=== PATIENT | female | born 1985 | race Asian ===

== ENCOUNTER 2016-08-17 11:11 | Outpatient (CLI) | payer SELFPAY ==
[~2016-08-17] VITALS: Ht 162.6 cm; Wt 62.5 kg
[2016-08-17 11:20] VITALS: Ht 162.6 cm; Wt 62.5 kg
[2016-08-17 11:21] VITALS: BP 118/72
[2016-08-17] MEDS ORDERED: CALC300T4 PO (11:25)
[2016-08-17] MEDS ORDERED: PREN1TAB17 PO (11:25)
[2016-08-17 12:21] LABS: ADD SCAN DIFF NO
[2016-08-17 12:25] LABS: BASOPHILS % 0.3 % (0.0-2.0); EOSINOPHILS # 0.1 10^3/ul (0.0-0.5); HEMATOCRIT 34.7 % (37.0-47.0); HEMOGLOBIN 11.8 g/dl (12.0-16.0); LYMPHOCYTES # 2.2 10^3/ul (0.8-2.9); LYMPHOCYTES % 16.5 % (15.0-51.0); MEAN CORPUSCULAR HEMOGLOBIN 32.1 pg (29.0-33.0); MEAN CORPUSCULAR VOLUME 94.3 fl (82.0-101.0); MEAN PLATELET VOLUME 9.6 fl (7.4-10.4); MONOCYTES % 7.2 % (0.0-11.0); NEUTROPHIL # 9.7 10^3/ul (1.6-7.5); NEUTROPHILS % 73.3 % (39.0-77.0); PLATELET COUNT 266 10^3/UL (140-415); RED BLOOD COUNT 3.68 10^6/ul (4.20-5.40); RED CELL DISTRIBUTION WIDTH 12.8 % (11.5-14.5); WHITE BLOOD COUNT 13.3 10^3/ul (4.8-10.8)
[2016-08-17 13:46] LABS: ADD UMIC NO; URINE BILIRUBIN (Dip) NEGATIVE (NEGATIVE); URINE BLOOD (Dip) NEGATIVE (NEGATIVE); URINE COLOR LT. YELLOW (YELLOW); URINE GLUCOSE (Dip) NEGATIVE (NEGATIVE); URINE KETONES (Dip) NEGATIVE (NEGATIVE); URINE LEUKOCYTE ESTERASE (Dip) NEGATIVE (NEGATIVE); URINE NITRITE (Dip) NEGATIVE (NEGATIVE); URINE TOTAL PROTEIN (Dip) NEGATIVE (NEGATIVE); URINE UROBILINOGEN (Dip) 0.2 E.U./dL (0.1-1.0)
--- NOTE | 2016-08-17 14:35 | RADRPT ---
PROCEDURE: US OB biophysical profile. Ultrasound cervix CLINICAL INDICATION: decreased movements, pain TECHNIQUE: Multiple sonographic images of the pelvis were obtained. In addition, transvaginal imag es of the cervix were obtained. The images were reviewed on a PACS workstation. COMPARISON: No prior studies are available for comparison. FINDINGS: The cervix is closed and measures 3.5 cm in length. There is a single viable intrauterine gestation. Cardiac activity is present with 115 beats per min shabbir. There is a vertex presentation. The placenta is anterior. There is no evidence of placental abruption. There is a normal amount of amniotic fluid with an TORSTEN = 10.7 cm. Biophysical profile: movement 2/2 tone 2/2. breathing 2/2 TORSTEN 2/2 Total 11/02 RPTAT: AA . IMPRESSION: Normal biophysical profile. . .Billy Asencio MD, Date Time Electronically viewed and signed by .Billy Asencio MD, on 08/17/2016 14:34 .S/
--- NOTE | 2016-08-17 16:19 | TRIAGE ---
OB Triage Datetime Report Generated by CPN: 08/17/2016 16:19 Datetime: 08/17/2016 15:50 Stage of : OB Triage Labor Evaluation Frequency: 0 Monitor Mode: External Pattern: Normal: <= 5 Contractions in 10 Minutes Resting Tone Truman: Relaxed Heart Rate FHR Baseline Rate: 125 Monitor Mode: External US Variability: Moderate 6-25 bpm Accelerations: 15X15 Decelerations: None Category: Category I Pain Presence: None/Denies Pain Type: N/A Vaginal Exam Membrane Status: Intact Datetime: 08/17/2016 14:10 Stage of : OB Triage Labor Evaluation Frequency: 0 Monitor Mode: External Pattern: Normal: <= 5 Contractions in 10 Minutes Resting Tone Truman: Relaxed Heart Rate FHR Baseline Rate: 125 Monitor Mode: External US Variability: Moderate 6-25 bpm Accelerations: 15X15 Decelerations: None Category: Category I Pain Presence: None/Denies Pain Type: N/A Vaginal Exam Membrane Status: Intact Datetime: 08/17/2016 13:56 Stage of : OB Triage Labor Evaluation Frequency: 0 Monitor Mode: External Resting Tone Truman: Relaxed Heart Rate FHR Baseline Rate: 120 Monitor Mode: External US Variability: Moderate 6-25 bpm Accelerations: 15X15 Decelerations: None Category: Category I Pain Presence: None/Denies Pain Type: N/A Datetime: 08/17/2016 13:14 Stage of : OB Triage Labor Evaluation Frequency: 0 Monitor Mode: External Pattern: Normal: <= 5 Contractions in 10 Minutes Resting Tone Truman: Relaxed Heart Rate FHR Baseline Rate: 120 Monitor Mode: External US Variability: Moderate 6-25 bpm Accelerations: 15X15 Decelerations: None Category: Category I Pain Presence: None/Denies Pain Type: N/A Vaginal Exam Membrane Status: Intact Datetime: 08/17/2016 12:59 Stage of : OB Triage Labor Evaluation Frequency: 0 Monitor Mode: External Pattern: Normal: <= 5 Contractions in 10 Minutes Heart Rate FHR Baseline Rate: 125 Monitor Mode: External US Variability: Moderate 6-25 bpm Accelerations: 15X15 Decelerations: None Category: Category I Pain Presence: None/Denies Pain Type: N/A Vaginal Exam Membrane Status: Intact Datetime: 08/17/2016 12:17 Stage of : OB Triage Labor Evaluation Frequency: 0 Monitor Mode: External Pattern: Normal: <= 5 Contractions in 10 Minutes Heart Rate FHR Baseline Rate: 120 Monitor Mode: External US Variability: Moderate 6-25 bpm Accelerations: 15X15 Decelerations: None Category: Category I Pain Presence: None/Denies Pain Type: N/A Vaginal Exam Membrane Status: Intact Datetime: 08/17/2016 11:39 EGA: 30.5 Datetime: 08/17/2016 11:27 Stage of : OB Triage Assessment Type: Triage Maternal Assessment Level of Consciousness: Fully Conscious DTR's/Clonus: DTRs 2+; No Clonus Headache: Denies Blurred Vision: No Respiratory Effort: Unlabored; Regular Rhythm; Equal Expansion Breath Sounds, Left: Clear and Equal Breath Sounds, Right: Clear and Equal Nausea/Vomiting: Denies RUQ Epigastric Pain: Denies Lower Extremities Edema: None Degree: None Upper Extremities Edema: None Degree: None Facial Edema: None Temperature Route: Oral Fall Risk Assessment History of Falling: (0) No Secondary Diagnosis: (0) No Ambulatory Aid: (0) Bedrest/Nurse Assist IV Therapy: (0) No Gait: (0) Normal/Bedrest/Immobile Mental Status: (0) Oriented to Own Ability Fall Score: 0 Fall Risk Score Definition: No Risk: No action required Labor Evaluation Frequency: 0 Monitor Mode: External Heart Rate FHR Baseline Rate: 125 Monitor Mode: External US Variability: Moderate 6-25 bpm Accelerations: 15X15 Decelerations: None Category: Category I Pain Assessment Pain Scale: 0 Pain Presence: None/Denies Pain Type: N/A Datetime: 08/17/2016 11:26 Time of Arrival: 08/17/2016 11:05 Arrived By: Ambulatory Arrived From: Home Chief Complaint: HERE FOR CHECK NO MD FROM [place] Movement: Present Contractions: Denies/Absent Rupture of Membranes: Denies Vaginal Bleeding: None Vaginal Discharge: Denies Recent Sexual Intercouse: Denies Abdominal Trauma: Not Applicable Patient Complaints: None Provider Notified: KIEL Initial Plan: [id number]. CALL
--- NOTE | 2016-08-17 16:25 | CONS ---
Date/Time of Note Date/Time of Note DATE: 08/17/16 TIME: 16:14 Consultation Date/Type/Reason Admit Date/Time August 17, 2016 Triage consult Reason for Consultation This patient is a 31 years old 1 para 0 with estimated date of confinement of October 21, 2016 which makes her 29 weeks and 3 days she was under care of [facility] just moved to [place] and no care planing of constipation and the slight abdominal pain in reviewing her history no also complaining of GERD and taking Tums as well as her pills. Her vital signs appears to be normal, blood pressure 118/22, pulse rate 97, respirations 16, temperature 98.7,. On examination she is a well-developed well-nourished oriental lady ear nose throat appear to be normal chest clear abdomen is soft very rare contract fetus appears to be in the vertex position On laboratory study her urine test is normal. No proteinuria. Nitrate is negative. Her CBC showed mild anemia hemoglobin 11.8 hematocrit hematocrit 34.7 Ultrasound study; there is a single fetus in vertex presentation. Cervical length is 3.5 cm. Single viable intrauterine gestation. Heart rate of 115 bpm. In vertex presentation. Placenta is anterior no evidence of abruptio or placenta previa . TORSTEN was reported 10.7 cm. Laboratory Tests Test 08/17/16 11:05 White Blood Count 13.310^3/ul Red Blood Count 3.6810^6/ul Hemoglobin 11.8g/dl Hematocrit 34.7% Mean Corpuscular Volume 94.3fl Mean Corpuscular Hemoglobin 32.1pg Mean Corpuscular Hemoglobin Concent 34.0g/dl Red Cell Distribution Width 12.8% Platelet Count 38618^3/UL Mean Platelet Volume 9.6fl Neutrophils % 73.3% Lymphocytes % 16.5% Monocytes % 7.2% Eosinophils % 1.0% Basophils % 0.3% Nucleated Red Blood Cells % 0.0/100WBC Neutrophils # 9.710^3/ul Lymphocytes # 2.210^3/ul Monocytes # 1.010^3/ul Eosinophils # 0.110^3/ul Basophils # 0.010^3/ul Nucleated Red Blood Cells # 0.010^3/ul Urine Color LT. YELLOW Urine Clarity CLEAR Urine pH 6.0 Urine Specific [place] 1.010 Urine Ketones NEGATIVE Urine Nitrite NEGATIVE Urine Bilirubin NEGATIVE Urine Urobilinogen 0.2 E.U./dL Urine Leukocyte Esterase NEGATIVE Urine Hemoglobin NEGATIVE Urine Glucose NEGATIVE% Urine Total Protein NEGATIVE Biophysical profile 11/02 Estimated weight 1576 g Constitutional: No chills, No diaphoresis, No disoriented, No febrile, No improved, No no complaints, No other, No poor po, No requiring IVF, No requiring O2 Eyes: No discharge, No no complaints, No other, No pain, No redness, No visual change ENT: No bleeding, No congestion, No discharge, No dysphagia, No no complaints, No other, No pain, No sore throat Respiratory: No cough, No no complaints, No other, No pain, No pleuritic pain, No shortness of breath, No sputum, No wheezing Cardiovascular: No chest pain, No edema, No lightheadedness, No no complaints, No orthopenea, No other, No palpitations, No paroxysmal nocturnal dyspnea Gastrointestinal: other (Complaining of GERD syndrome), No blood, No constipation, No decreased appetite, No diarrhea, No flatus, No nausea, No no complaints, No pain, No passing stool, No vomiting Genitourinary: No bleeding, No discharge, No dysuria, No flank pain, No hematuria, No no complaints, No other Musculoskeletal: No back pain, No bone/joint pain, No neck pain, No no complaints, No other, No restricted range of motion, No swelling Skin: No bruising, No erythema, No laceration, No no complaints, No other, No pruritis, No rash, No skin lesions Neurologic: No confusion, No dizziness, No focal-weakness, No headache, No no complaints, No other, No seizure, No syncope Endocrine: No dry skin, No no complaints, No other, No polydypsia, No polyuria , No temp intolerance Social History Smoking Status: Never smoker Exam/Review of Systems Vital Signs Vitals Vital Signs Date Time Temp Pulse Resp B/P Pulse Ox O2 Delivery O2 Flow Rate FiO2 08/17/16 11:21 98.4 118/72 Room Air Results Result Diagram: 08/17/16 1105 Results 24 hrs Laboratory Tests Test 08/17/16 11:05 White Blood Count 13.3 H Red Blood Count 3.68 L Hemoglobin 11.8 L Hematocrit 34.7 L Mean Corpuscular Volume 94.3 Mean Corpuscular Hemoglobin 32.1 Mean Corpuscular Hemoglobin Concent 34.0 Red Cell Distribution Width 12.8 Platelet Count 266 Mean Platelet Volume 9.6 Neutrophils % 73.3 Lymphocytes % 16.5 Monocytes % 7.2 Eosinophils % 1.0 Basophils % 0.3 Nucleated Red Blood Cells % 0.0 Neutrophils # 9.7 H Lymphocytes # 2.2 Monocytes # 1.0 H Eosinophils # 0.1 Basophils # 0.0 Nucleated Red Blood Cells # 0.0 Urine Color LT. YELLOW Urine Clarity CLEAR Urine pH 6.0 Urine Specific [place] 1.010 Urine Ketones NEGATIVE Urine Nitrite NEGATIVE Urine Bilirubin NEGATIVE Urine Urobilinogen 0.2 E.U./dL Urine Leukocyte Esterase NEGATIVE Urine Hemoglobin NEGATIVE Urine Glucose NEGATIVE Urine Total Protein NEGATIVE LINH DYSON MD August 17, 2016 16:24
== END 2016-08-17 16:16 | disposition home or self-care (01) ==
LOC: OBT 11:11 → L-D 11:14 → OBT 16:16
DX: O26.893 Other specified pregnancy related conditions, third trimester (principal); K59.00 Constipation, unspecified; R10.9 Unspecified abdominal pain; Z3A.29 29 weeks gestation of pregnancy
CPT/HCPCS: 36415; 76815; 76817; 76818; 81003; 85025; G0463

== ENCOUNTER 2016-10-05 11:12 | Inpatient (IN) | payer MEDICAID, OTHER ==
[~2016-10-05] VITALS: Ht 162.6 cm; Wt 65.5 kg
[~2016-10-05 11:12] MED LIST: CALC300T4 PO; PREN1TAB17 PO
[2016-10-05 12:09] VITALS: BP 113/74; PULSE 90; Ht 162.6 cm; Wt 65.5 kg
[2016-10-05] MEDS ORDERED: CARBOPROST 250 MCG INJ IM PRN (14:00)
[2016-10-05] MEDS ORDERED: OXYTOCIN 30 UNITS/LR 500 ML IV PRN (14:00)
[2016-10-05] MEDS ORDERED: LIDOCAINE 1% (MPF) 30 ML INJ INJ PRN (14:00)
[2016-10-05] MEDS ORDERED: MISOPROSTOL 200 MCG TAB PR PRN (14:00)
[2016-10-05] MEDS ORDERED: BUTORPHANOL 2 MG INJ IV PRN ×2 (14:00)
[2016-10-05] MEDS ORDERED: OXYTOCIN 30 UNITS/LR 500 ML IV SCH (14:00)
[2016-10-05] MEDS ORDERED: AMPICILLIN 2 GM/NS (PMX) 100 ML IV ONE (14:00)
[2016-10-05] MEDS ORDERED: LACTATED RINGER'S 1,000 ML IV PRN (14:00)
[2016-10-05] MEDS ORDERED: METHYLERGONOVINE 0.2 MG INJ IM PRN (14:00)
[2016-10-05] MEDS: LACTATED RINGER'S 1,000 ML IV SCH ×2 (16:23→22:07)
--- NOTE | 2016-10-05 16:31 | RADRPT ---
PROCEDURE: US OB. CLINICAL INDICATION: Size and dates TECHNIQUE: Multiple sonographic images of the pelvis and gravid uterus were obtained. The images were reviewed on a PACS workstation. COMPARISON: 08/17/16 FINDINGS: There is a single viable intrauterine gestation. Cardiac activity is present with 140 beats per min shabbir. There is a vertex presentation. The placenta is anterior. There is no evidence for an abruption or placenta previa. Measurements were made in order to determine age. The results are as follows: BPD =8.9 cm HC =32.6 cm AC =36.2 cm FL =7.2 cm Estimated gestational age of approximately 37 weeks and 4 days based on ultrasound measurements. Clinical age: 37 weeks and 5 days. The estimated date of delivery is 10/22/16, based on ultrasound measurements. The EFW = 3527 g, 80.6%, based on LMP age. RPTAT: AA IMPRESSION: Single viable intrauterine gestation of approximately 37 weeks and 4 days based on ultrasound measu rements. .Billy Asencio MD, Date Time Electronically viewed and signed by .Billy Asencio MD, on 10/05/2016 16:31 .S/
[2016-10-05 16:35] LABS: ADD SCAN DIFF NO
[2016-10-05 16:53] LABS: BASOPHIL # 0.1 10^3/ul (0.0-0.1); BASOPHILS % 0.5 % (0.0-2.0); EOSINOPHILS # 0.1 10^3/ul (0.0-0.5); EOSINOPHILS % 0.5 % (0.0-7.0); HEMATOCRIT 38.5 % (37.0-47.0); HEMOGLOBIN 13.1 g/dl (12.0-16.0); LYMPHOCYTES # 2.5 10^3/ul (0.8-2.9); LYMPHOCYTES % 19.1 % (15.0-51.0); MEAN CORPUSCULAR HEMOGLOBIN 31.6 pg (29.0-33.0); MEAN PLATELET VOLUME 10.5 fl (7.4-10.4); MONOCYTE # 0.9 10^3/ul (0.3-0.9); MONOCYTES % 6.4 % (0.0-11.0); NEUTROPHIL # 9.6 10^3/ul (1.6-7.5); NEUTROPHILS % 72.4 % (39.0-77.0); PLATELET COUNT 248 10^3/UL (140-415); RED BLOOD COUNT 4.14 10^6/ul (4.20-5.40); WHITE BLOOD COUNT 13.2 10^3/ul (4.8-10.8)
[2016-10-05 16:56] LABS: INR 0.83; PROTIME 11.4 Sec (12.2-14.2); PT RATIO 0.9
[2016-10-05 16:57] LABS: PARTIAL THROMBOPLASTIN TIME 29.1 Sec (25.0-35.0)
[2016-10-05] MEDS: AMPICILLIN 1 GM/NS (PMX) 50 ML IV SCH ×2 (18:00→22:08)
[2016-10-06] MEDS ORDERED: LACTATED RINGER'S 1,000 ML IV ONE (00:15)
[2016-10-06] MEDS ORDERED: ONDANSETRON 4 MG INJ IV ONE (00:30)
[2016-10-06] MEDS ORDERED: NALOXONE (0.4 MG/ML) INJ IV PRN (00:30)
[2016-10-06] MEDS ORDERED: FENTAnyl 2MCG/ML-ROPIV 0.2% 100 ML BAG EPI SCH (00:30)
[2016-10-06] MEDS ORDERED: ONDANSETRON 4 MG INJ IV PRN (00:30)
[2016-10-06] MEDS ORDERED: KETOROLAC 30 MG INJ IV PRN (00:30)
[2016-10-06] MEDS ORDERED: CITRIC ACID/NA CITRATE 30 ML CUP PO ONE (00:30)
[2016-10-06] MEDS ORDERED: morphine 2 MG INJ IV PRN ×2 (00:30)
[2016-10-06] MEDS ORDERED: DIPHENHYDRAMINE 50 MG INJ IV PRN (00:30)
[2016-10-06] MEDS ORDERED: PROCHLORPERAZINE 10 MG INJ IV PRN (00:30)
[2016-10-06] MEDS: LACTATED RINGER'S 1,000 ML IV SCH (01:33)
[2016-10-06] MEDS: AMPICILLIN 1 GM/NS (PMX) 50 ML IV SCH ×2 (01:58→06:00)
--- NOTE | 2016-10-06 05:32 | HP ---
Date/Time of Note Date/Time of Note DATE: 10/06/16 TIME: 05:31 OB - History Hx of Present Free Text/Dictation @37+wks GA with SROM : 1 Para: 0 Care: Good Care Ultrasounds: Normal mid trimester US Obstetrical Complications: None Medical Complications: None Past Family/Social History * Past Medical, Surgical, Family and Obstetric Histories reviewed from chart. OB Admission Exam Vital Signs Vital Signs Vital Signs Date Time Temp Pulse Resp B/P Pulse Ox O2 Delivery O2 Flow Rate FiO2 10/05/16 12:09 98.3 90 113/74 Physical Exam Abdomen: WNL Extremities: Normal Membranes: Intact Heart Rate: 140's Accelerations: Accelerations Present Decelerations: No Decelerations Varibility: Moderate Last 72 hours Lab Results CBC & BMP 10/05/16 16:15 OB Assessment/Plan Reason for admission: observation Plan: Expectant Management TONYA MARIA M.D. Oct 06, 2016 05:32
--- NOTE | 2016-10-06 05:33 | LDN ---
Date/Time of Note Date/Time of Note DATE: 10/06/16 TIME: 05:32 Delivery Summary Weeks of Gestation 37+ Placenta Delivered: Spontaneously Meconium: none Episiotomy: No Perineal laceration: 2 Anesthesia type: Local Estimated blood loss: 200 Sponge & Needle done & correct: Yes All needle counts correct: Yes Any foreign bodies felt in the: No Problems: Delivery Information Apgars 1 Minute: 8 5 Minute: 9 Suctioning Nose & mouth suctioned at sunny: Yes Delee suction performed: Yes Umbilical Cord Umbilical cord with: 3 Vessels Cord presentations: no nuchal cord Cord Blood was obtained: Yes Mother & Baby Disposition Disposition Mom & Baby to Maternity; Good: Yes Baby to NICU: No TONYA MARIA M.D. Oct 06, 2016 05:33
[2016-10-06 08:40] VITALS: BP 100/56; PULSE 62; RESP 18
[2016-10-06] MEDS: LACTATED RINGER'S 1,000 ML IV* SCH ×2 (08:54→16:54)
[2016-10-06] MEDS ORDERED: OXYTOCIN 30 UNITS/LR 500 ML IV PRN (09:00)
[2016-10-06] MEDS ORDERED: OXYCODONE/ASPIRIN (4.88/325) TAB PO PRN (09:00)
[2016-10-06] MEDS ORDERED: MISOPROSTOL 200 MCG TAB PR PRN (09:00)
[2016-10-06] MEDS ORDERED: LANOLIN 7 GM TUBE TOP PRN (09:00)
[2016-10-06] MEDS ORDERED: CARBOPROST 250 MCG INJ IM PRN (09:00)
[2016-10-06] MEDS ORDERED: SENNA/DOCUSATE NA (8.6MG/50MG) TAB PO PRN (09:00)
[2016-10-06] MEDS ORDERED: METHYLERGONOVINE 0.2 MG INJ IM PRN (09:00)
[2016-10-06] MEDS ORDERED: ZOLPIDEM 5 MG TAB PO PRN (09:00)
[2016-10-06] MEDS: BENZOCAINE 20% 56 ML SPRAY TOP PRN (10:00)
[2016-10-06] MEDS: WITCH HAZEL/GLYCERIN PAD PR PRN (10:00)
[2016-10-06] MEDS: SENNA/DOCUSATE NA (8.6MG/50MG) TAB PO SCH ×2 (10:01→21:50)
[2016-10-06] MEDS: IBUPROFEN 600 MG TAB PO SCH ×2 (11:53→17:31)
[2016-10-06 12:00] VITALS: BP 101/63; PULSE 86; RESP 18
[2016-10-06 16:00] VITALS: BP 101/63; PULSE 59; RESP 18
[2016-10-06 19:45] VITALS: BP 117/71; PULSE 62; RESP 19
[2016-10-07] MEDS: IBUPROFEN 600 MG TAB PO SCH ×4 (00:32→16:37)
[2016-10-07 04:10] VITALS: BP 104/62; PULSE 60; RESP 18
[2016-10-07 08:30] VITALS: BP 114/75; PULSE 64; RESP 16
[2016-10-07] MEDS: SENNA/DOCUSATE NA (8.6MG/50MG) TAB PO SCH ×2 (09:16→21:48)
[2016-10-07 09:57] LABS: ADD SCAN DIFF NO
[2016-10-07 09:58] LABS: BASOPHIL # 0.1 10^3/ul (0.0-0.1); BASOPHILS % 0.4 % (0.0-2.0); EOSINOPHILS # 0.2 10^3/ul (0.0-0.5); EOSINOPHILS % 0.9 % (0.0-7.0); HEMATOCRIT 35.8 % (37.0-47.0); HEMOGLOBIN 11.8 g/dl (12.0-16.0); LYMPHOCYTES % 18.1 % (15.0-51.0); MEAN CORPUSCULAR HEMOGLOBIN 31.4 pg (29.0-33.0); MEAN CORPUSCULAR VOLUME 95.2 fl (82.0-101.0); MEAN PLATELET VOLUME 10.5 fl (7.4-10.4); MONOCYTE # 0.9 10^3/ul (0.3-0.9); MONOCYTES % 5.4 % (0.0-11.0); NEUTROPHIL # 12.3 10^3/ul (1.6-7.5); NEUTROPHILS % 74.5 % (39.0-77.0); PLATELET COUNT 239 10^3/UL (140-415); RED BLOOD COUNT 3.76 10^6/ul (4.20-5.40); RED CELL DISTRIBUTION WIDTH 13.2 % (11.5-14.5); WHITE BLOOD COUNT 16.5 10^3/ul (4.8-10.8)
[2016-10-07 15:29] VITALS: BP 109/70; PULSE 64; RESP 16
[2016-10-07 20:00] VITALS: BP 107/69; PULSE 60; RESP 17
[2016-10-07] MEDS: WITCH HAZEL/GLYCERIN PAD PR PRN (21:48)
[2016-10-07] MEDS: BENZOCAINE 20% 56 ML SPRAY TOP PRN (21:48)
[2016-10-08] MEDS: IBUPROFEN 600 MG TAB PO SCH ×3 (00:04→12:11)
[2016-10-08 03:55] VITALS: BP 114/66; PULSE 66; RESP 18
--- NOTE | 2016-10-08 08:40 | PD.PPDC ---
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
--- NOTE | 2016-10-08 08:45 | DS ---
Date/Time of Note Date/Time of Note DATE: 10/08/16 TIME: 08:44 Obstetrical Discharge Record Final Diagnosis Final Diagnosis: Term delivered Vaginal Delivery Obstetrical Delivery: Bilateral Tubal Ligation Complications Augmentation: Yes Condition on Discharge Physical Assessment Last Vitals: vss afebrle Voiding: Yes Bowel Movement: Yes Breast: Soft, non-tender Fundus: Firm Calf Tenderness: No Patient Condition: Stable MALINA CHAPARRO MD Oct 08, 2016 08:44
[2016-10-08 09:00] VITALS: BP 103/62; PULSE 16; RESP 16
[2016-10-08] MEDS ORDERED: DIPHTH/TET/ACEL PERTUSS (ADULT) 0.5 ML VIAL IM* ONE (09:00)
[2016-10-08] MEDS: SENNA/DOCUSATE NA (8.6MG/50MG) TAB PO SCH (10:50)
== END 2016-10-08 14:30 | disposition home or self-care (01) | DRG 775 ==
LOC: OBT 11:12 → L-D 11:14 → OBT 13:45 → L-D 13:47 → PP1 10-06 08:18
PROVIDERS: ADMIT Obstetrics & Gynecology; ATTEND Obstetrics & Gynecology
PROC: 10E0XZZ Delivery of Products of Conception, External Approach (ICD-10-PCS; principal; 2016-10-06)
PROC: 0KQM0ZZ Repair Perineum Muscle, Open Approach (ICD-10-PCS; 2016-10-06)
PROC: 3E00X4Z Introduction of Serum, Toxoid and Vaccine into Skin and Mucous Membranes, External Approach (ICD-10-PCS; 2016-10-08)
DX: O70.1 Second degree perineal laceration during delivery (principal); Z37.0 Single live birth; Z23 Encounter for immunization; Z3A.37 37 weeks gestation of pregnancy
CPT/HCPCS: 62319; 76815; 84112; 85025; 85610; 85730; 86592; 86900; 86901; 87340; 90715; G0463; J0290; J1885; J2405; J2590; J3010; J7120